=== PATIENT | female | born 1960 | race Caucasian/White ===

== ENCOUNTER → 2018-08-02 | Day surgery (SDC) | payer BC, MEDICARE ==
[~2018-08-02] MED LIST: AMBIEN10 MG PO; ARMOUR THYROID PO; BELBUCA; CLONAZEPAM1 MG PO; CYCLOBENZAPRINE10 MG PO; FENTANYL CITRATE/PF 100MCG/2 ML INJ ONE; GABAPENTIN300 MG PO; HYOSCYAMINE SULFATE 0.5 MG/ML INJ ONE; LEVAQUIN PO; LEVOTHYROXINE50 MCG PO; LIDOCAINE HCL50 ML TOP; LOSARTAN PO; LYRICA75 MG PO; MACROBID 100 M100 MG PO; METFORMIN HCL500 MG PO; MIDAZOLAM HCL 2 MG/2 ML VIAL ONE; MIRTAZAPINE15 MG PO; NAFTIN TOP; NASAL SPRAY30 M1; ONDANSETRON HCL INJ 2 MG/ML VIAL ONE; PRENATAL VITAM1 EACH PO; PROPOFOL IV EMULSION 10 MG/ML 50 ML VIAL ONE; PROPRANOLOL HCL10 MG PO; SAVELLA100 MG PO; ULTRAM50 MG PO; VENLAFAXINE HCL75 MG PO; VITAMIN B PO; VITAMIN D PO; [UNRECOGNIZED DRUG - OTHER]; [UNRECOGNIZED DRUG - OTHER] PO; [UNRECOGNIZED DRUG - OTHER] PO
--- OUTSIDE RECORDS SUMMARY | 2018-08-02 12:46 | XMS REPORT | Clinical Summary ---
Author Author [facility] Organization [facility] Address Unknown Phone Unavailable Care Team Providers Care Admissions Clinician Name Role Phone Jas Rosa MD PCP Allergies Comments Active Allergy Reactions Severity Noted Date Reports tardive dyskinesia, "spasms in arm" Quetiapine 12/08/2016 Medications End Date Status Medication Sig Dispensed Refills Start Date Active buprenorphine (BUTRANS) Place on the 0 10 mcg/hour patch weekly skin every 7 days. Active loren Take by mouth 0 [id number] daily. ac (PRIMROSE OIL) 1,000 mg capsule Active cyanocobalamin 100 MCG Take 1,000 0 tablet mcg by mouth daily. Active cyclobenzaprine Take 10 mg by 0 (FLEXERIL) 10 mg tablet mouth 2 (two) times a day as needed for muscle spasms. Active thyroid, pork, (ARMOUR Take 120 mg 0 THYROID) 120 mg tablet by mouth daily. Active venlafaxine XR Take 150 mg 0 (EFFEXOR-XR) 150 MG 24 hr by mouth 2 capsule (two) times a day. Active ketoprofen 5% and Apply 0 lidocaine 5% 5%-5% cream topically. With cylocbenzapri ne 3 Active eszopiclone (LUNESTA) 3 Take 3 mg by 0 mg tablet mouth nightly. Take immediately before bedtime Active pregabalin (LYRICA) 100 Take 225 mg 0 MG capsule by mouth 2 (two) times a day. Active mupirocin (BACTROBAN) 2 % Apply 0 ointment topically 3 (three) times a day. Active methocarbamol (ROBAXIN) Take 500 mg 0 500 MG tablet by mouth 4 (four) times a day. Active clobetasol 0.05 % lotion Apply 0 topically 2 (two) times a day. Active QUEtiapine XR (SEROquel Take 300 mg 0 XR) 300 MG 24 hr tablet by mouth nightly. Active celecoxib (CeleBREX) 200 Take 200 mg 0 MG capsule by mouth 2 (two) times a day. Active levocetirizine (XYZAL) 5 Take 5 mg by 0 MG tablet mouth every evening. Active naltrexone-bupropion Take by mouth 0 (CONTRAVE) 8-90 mg tablet 2 (two) times extended release a day. States does not take yet Active potassium chloride Take 10 mEq 0 (K-DUR,KLOR-CON) 10 MEQ by mouth 2 CR tablet (two) times a day. Active ondansetron (ZOFRAN) 8 MG Take 8 mg by 0 tablet mouth every 8 (eight) hours as needed for nausea or vomiting. Active oxyCODone (ROXICODONE) 30 Take 30 mg by 0 MG immediate release mouth every 4 tablet (four) hours as needed for moderate pain. Active multivitamin with Take 1 tablet 0 minerals tablet by mouth daily. Active Problems Not on file Encounters Care Team Description Date Type Specialty Timi Cooper MD Screening for malignant neoplasm of breast; Screening for osteoporosis 07/31/2018 Hospital Radiology Encounter Timi Cooper MD Screening for malignant neoplasm of breast; Screening for osteoporosis 07/31/2018 Hospital Radiology Encounter Timi Cooper MD Screening for malignant neoplasm of breast (Primary Dx); Screening for osteoporosis 07/27/2018 Transcribe Access Orders after 08/01/2017 Social History Date Tobacco Use Types Packs/Day Years Used Never Smoker Alcohol Use Drinks/Week oz/Week Comments No Sex Assigned at Date Recorded Not on file Industry Job Start Date Occupation Not on file Not on file Not on file Travel End Travel History Travel Start No recent travel history available. Last Filed Vital Signs Not on file Plan of Treatment Health Maintenance Due Date Last Done Comments CERVICAL CANCER SCREENING 1983 COLON CANCER SCREENING 02/12/2012 SHINGRIX VACCINE (1 of 2) 02/12/2012 INFLUENZA VACCINE 03/22/2018 BREAST CANCER SCREENING 07/31/2020 07/31/2018, 05/28/2016, 04/07/2015 HEPATITIS B VACCINES Aged Out No longer eligible based on patient's age to complete this topic IPV VACCINES Aged Out No longer eligible based on patient's age to complete this topic MENINGOCOCCAL VACCINE Aged Out No longer eligible based on patient's age to complete this topic Procedures Comments Procedure Name Priority Date/Time Associated Diagnosis MAMMO BREAST SCREEN Routine 07/31/2018 Screening for malignant TOMOSYNTHESIS BILATERAL 1:20 PM MASS SPECTROMETRY MANAGER neoplasm of breast Screening for osteoporosis BONE DENSITY Routine 07/31/2018 Screening for malignant 12:30 PM MASS SPECTROMETRY MANAGER neoplasm of breast Screening for osteoporosis after 08/01/2017 Results * Mammo Breast Screen Tomosynthesis Bilateral (07/31/2018 1:20 PM MASS SPECTROMETRY MANAGER) Narrative Performed At PROCEDURE: MAMMO BREAST SCREEN TOMOSYNTHESIS BILATERAL [facility] Computer aided detection was utilized for the interpretation of the digital bilateral screening mammography with tomosynthesis. COMPARISON: Prior studies dating 05/28/2016 and 04/07/2015 DENSITY: There are scattered areas of fibroglandular density. There is no evidence of new suspicious masses, architectural distortions or grouped calcifications in the breast. There are stable benign calcifications and an intramammary node in the right breast. IMPRESSION:No mammographic evidence of malignancy. RECOMMENDATION: Comparison with physical exam and annual screening mammography. BI-RADS 2: Benign. This facility is accredited by the [employer] for Mammography. A negative x-ray report should not delay biopsy if a dominant or clinically suspicious mass is present.Not all cancers are identified by x-ray. [id number] Performing Organization Address City/State/Zipcode Phone Number [facility] [address] [place] [address] * Bone Density (07/31/2018 12:30 PM MASS SPECTROMETRY MANAGER) Narrative Performed At EXAMINATION:BONE DENSITY [facility] CLINICAL HISTORY: 58 years Female Z12.31 Encounter for screening mammogram for malignant neoplasm of breast, Z13.820 Encounter for screening for osteoporosis, Z13.820 COMPARISON:05/28/2016 The results of this study expressed as bone mineral density (BMD) were as follows: AP spine (L1-L4) BMD: 1.168 g/cm2 T-Score: -0.1 Z-Score: -0.4 Percent change: +6.2 Dual Femur (Total Mean): BMD: 0.978 g/cm2 T-Score: -0.2 Z-Score:-0.3 Percent change: +5.4 Left femoral neck: BMD: 0.891 g/cm2 T-Score: -1.1 Z score: -0.7 Right femoral neck: BMD: 0.879 g/cm2 T-Score: -1.1 Z score: -0.8 Femur FRAX: Risk factors: Adult fracture 10 year probability of fracture: 1.Major osteoporotic: 9.7% 2.Hip: 0.5% 3.Based on femur right neck BMD Impression: 1.WHO classification consistent with osteopenia Notes: *The world health organization (WHO) has classified the patient's T-score as follows: At or above (-1) as normal (-1) to (-2.5) as low (osteopenia) At or below (-2.5) as abnormally low (osteoporosis, increased fracture risk) For premenopausal women, men under the age 50 years, and children the WHO classification does not apply. In these individuals please assess bone mineral density with Z scores for each skeletal site examined. Z scores above -2.0: Within expected range for age. Z scores lower than -2.0:Low bone density for age. The TBS is derived from the texture of the DEXA image and has been shown to be related to bone microarchitecture and fracture risk. This data provides information independent of BMD value; is used as a complement to the data obtained from the DEXA analysis and the clinical examination. The TBS can assist the healthcare professional in assessment of fracture risk and in monitoring the effect of treatments on patient over time. [id number] Procedure Note [facility], Radiology Results Incoming - 07/31/2018 3:27 PM MASS SPECTROMETRY MANAGER EXAMINATION: BONE DENSITY CLINICAL HISTORY: 58 years Female Z12.31 Encounter for screening mammogram for malignant neoplasm of breast, Z13.820 Encounter for screening for osteoporosis, Z13.820 COMPARISON: 05/28/2016 The results of this study expressed as bone mineral density (BMD) were as follows: AP spine (L1-L4) BMD: 1.168 g/cm2 T-Score: -0.1 Z-Score: -0.4 Percent change: +6.2 Dual Femur (Total Mean): BMD: 0.978 g/cm2 T-Score: -0.2 Z-Score: -0.3 Percent change: +5.4 Left femoral neck: BMD: 0.891 g/cm2 T-Score: -1.1 Z score: -0.7 Right femoral neck: BMD: 0.879 g/cm2 T-Score: -1.1 Z score: -0.8 Femur FRAX: Risk factors: Adult fracture 10 year probability of fracture: 1. Major osteoporotic: 9.7% 2. Hip: 0.5% 3. Based on femur right neck BMD Impression: 1. WHO classification consistent with osteopenia Notes: *The world health organization (WHO) has classified the patient's T-score as follows: At or above (-1) as normal (-1) to (-2.5) as low (osteopenia) At or below (-2.5) as abnormally low (osteoporosis, increased fracture risk) For premenopausal women, men under the age 50 years, and children the WHO classification does not apply. In these individuals please assess bone mineral density with Z scores for each skeletal site examined. Z scores above -2.0: Within expected range for age. Z scores lower than -2.0: Low bone density for age. The TBS is derived from the texture of the DEXA image and has been shown to be related to bone microarchitecture and fracture risk. This data provides information independent of BMD value; is used as a complement to the data obtained from the DEXA analysis and the clinical examination. The TBS can assist the healthcare professional in assessment of fracture risk and in monitoring the effect of treatments on patient over time. [facility]-[id number] [facility] Organization Address City/State/Zipcode Phone Number [facility] [address] [place] [address] after 08/01/2017 Insurance Payer Benefit Subscriber ID Type Phone Address Plan / Group BCBS CINTHYA xxxxxxxxxxxx O BLUE CROSS Advance Directives Patient has advance care planning documents on file. For more information, gladis dumont contact: [place] [phone] [place] [address]
[2018-08-02 16:42] VITALS: BP 124/62
--- NOTE | 2018-08-02 16:57 | Operative Report ---
DATE OF PROCEDURE: August 02, 2018 REFERRING PHYSICIAN: Dr. Bhavani Johnson. PROCEDURE PERFORMED: Colonoscopy and polypectomy note. INDICATIONS FOR COLONOSCOPY: A personal history of colon polyps, incomplete colonoscopy on previous exam 2017. MEDICATION: Patient was done under MAC. Please see anesthesiologist's note. PROCEDURE: With patient in left lateral decubitus position, flexible fiberoptic Olympus colonoscope was inserted into the rectum with ease and advanced all the way to the cecum. Mucosa overlying the cecum was well-visualized, except there was some debris in the cecal pouch which we could not wash off. The scope was then withdrawn slowly. One polyp was snared. One polyp was hot biopsied from the ascending colon. Both polypectomy sites were hemoclipped. The transverse and descending grossly appeared to be within normal limits. Some minimal diverticulosis was noted in the sigmoid colon. One polyp was hot biopsied from the sigmoid colon. The rectum appeared to be within normal limits. The scope was then retroflexed into the distal rectum and small internal hemorrhoids were noted, none of which was actively bleeding. The scope was then straightened out. It was subsequently withdrawn. Patient tolerated procedure well. IMPRESSIONS 1. Ascending colon polyps x2, one snared and one hot biopsied. Both polypectomy sites hemoclipped. 2. Sigmoid colon polyp, hot biopsied. 3. Diverticulosis. 4. Internal hemorrhoids, none actively bleeding. PLAN: Follow up histology. Initiate high-fiber, low-fat diet. Initiate a fiber supplement. Patient might benefit from a followup colonoscopy in 3 years. Job#: [id number] TA cc:BHAVANI JOHNSON, ,
== END | disposition home or self-care (01) ==
LOC: ENDO 12:44
PROVIDERS: ATTEND Internal Medicine Gastroenterology
DX: Z09 Encounter for follow-up examination after completed treatment for conditions other than malignant neoplasm (principal); D12.2 Benign neoplasm of ascending colon; K57.30 Diverticulosis of large intestine without perforation or abscess without bleeding; K64.8 Other hemorrhoids; K25.9 Gastric ulcer, unspecified as acute or chronic, without hemorrhage or perforation; K21.9 Gastro-esophageal reflux disease without esophagitis; K44.9 Diaphragmatic hernia without obstruction or gangrene; K58.9 Irritable bowel syndrome, unspecified; Z91.048 Other nonmedicinal substance allergy status; G47.33 Obstructive sleep apnea (adult) (pediatric); I10 Essential (primary) hypertension; E78.5 Hyperlipidemia, unspecified; R01.1 Cardiac murmur, unspecified; E11.9 Type 2 diabetes mellitus without complications; E03.9 Hypothyroidism, unspecified; N39.0 Urinary tract infection, site not specified; I83.90 Asymptomatic varicose veins of unspecified lower extremity; E66.01 Morbid (severe) obesity due to excess calories; F32.9 Major depressive disorder, single episode, unspecified; F41.9 Anxiety disorder, unspecified; Z88.8 Allergy status to other drugs, medicaments and biological substances; Z01.810 Encounter for preprocedural cardiovascular examination; Z79.84 Long term (current) use of oral hypoglycemic drugs; Z90.5 Acquired absence of kidney; Z80.0 Family history of malignant neoplasm of digestive organs
CPT/HCPCS: 36415; 45384; 45385; 82948; 93005; J1980; J2250; J2405; 45378

== ENCOUNTER → 2018-09-20 | Outpatient (CLI) | payer BC, MEDICARE ==
[~2018-09-20] MED LIST changes: -FENTANYL CITRATE/PF 100MCG/2 ML INJ ONE; -HYOSCYAMINE SULFATE 0.5 MG/ML INJ ONE; +IOPAMIDOL 370 MG/ML 200 ML INFUS..BTL INJ ONE; -MIDAZOLAM HCL 2 MG/2 ML VIAL ONE; -ONDANSETRON HCL INJ 2 MG/ML VIAL ONE; -PROPOFOL IV EMULSION 10 MG/ML 50 ML VIAL ONE; +SODIUM CHLORIDE 0.9% 50ML 50 ML ONE
[2018-09-20 16:17] LABS: BLOOD UREA NITROGEN 11 mg/dL (7-26); BUN/CREATININE RATIO 13 (6-25); CREATININE, SERUM 0.87 mg/dL (0.57-1.11); EST GLOMERULAR FILTRATION RATE > 60 ML/MIN (60-)
--- NOTE | 2018-09-20 17:08 | Diagnostic Imaging Report ---
EXAM: CT Abdomen and Pelvis WITH contrast INDICATION: Lump/mass, no pain COMPARISON: None. TECHNIQUE: Abdomen and Pelvis was scanned utilizing a multidetector helical scanner after administration of IV contrast. Coronal and sagittal reformations were obtained. IV CONTRAST: 100 mL Isovue-370 COMPLICATIONS: None RADIATION DOSE: Total DLP:825 mGy*cm Estimated effective dose: (DLP x 0.015 x size factor) mSv CTDIvol has been reviewed. It is below the limits set by the Radiation Protocol Committee (RPC). Appropriate CT dose reduction techniques were utilized. FINDINGS: Abdomen: Lung Bases: No acute findings. Solid Organs: Liver, adrenals, right kidney, spleen, and pancreas unremarkable. Left kidney not visualized. Upper GI Tract: Decompressed stomach limits evaluation. No small bowel obstructive changes. Vascularity: Minimal aortic vascular calcifications with no aneurysm. Lymph Nodes: No suspicious adenopathy. Other: Scattered hyperdense objects in the small and large bowel suggesting pleural fragments. No umbilical or periumbilical hernia. Inferolateral hernia is present on the left, just lateral to the rectus musculature with nonobstructed loops of small bowel. Pelvis: Bladder: Unremarkable. Other: Uterus absent. Colon: No acute colonic findings. Moderate proximal stool. Bones: No acute findings. IMPRESSION: 1. Inferolateral ventral wall hernia with nonobstructed loops of small bowel just lateral to the rectus musculature left lower quadrant. 2. Other findings as above. Signed by: Dr. Liam Goodson MD on 09/20/2018 5:05 PM
== END ==
LOC: CT 15:17
PROVIDERS: ATTEND Internal Medicine Gastroenterology
DX: R19.05 Periumbilic swelling, mass or lump (principal)
CPT/HCPCS: 36415; 74177; 82565; 84520; Q9967

== ENCOUNTER → 2018-10-27 | Day surgery (SDC) | payer BC, MEDICARE ==
[2018-10-24 13:08] LABS: BASOPHILS % 0.5 % (0.0-1.0); EOSINOPHILS # (AUTO) 0.1 (0.0-0.4); HEMATOCRIT 42.1 % (34.2-44.1); LYMPHOCYTES # (AUTO) 3.8 (1.0-3.2); LYMPHOCYTES % 42.6 % (18.0-39.1); MEAN CORPUSCULAR HEMOGLOBIN 30.5 pg (28-32); MEAN CORPUSCULAR HGB CONC 33.3 g/dL (31-35); MEAN CORPUSCULAR VOLUME 91.7 fL (81-99); MONOCYTES # (AUTO) 0.5 (0.2-0.8); MONOCYTES % 5.7 % (4.4-11.3); NEUTROPHILS # (AUTO) 4.4 (2.1-6.9); NEUTROPHILS % 50.1 % (38.7-80.0); PLATELET COUNT 232 x10e3/uL (140-360); RED BLOOD COUNT 4.59 x10e6/uL (3.6-5.1)
[2018-10-24 13:36] LABS: ALANINE AMINOTRANSFERASE 41 IU/L (0-55); ALBUMIN/GLOBULIN RATIO 1.1 (0.8-2.0); ALKALINE PHOSPHATASE 119 IU/L (40-150); ANION GAP 13.8 mmol/L (8-16); BLOOD UREA NITROGEN 26 mg/dL (7-26); BUN/CREATININE RATIO 33 (6-25); CALCIUM 10.2 mg/dL (8.4-10.2); CARBON DIOXIDE 26 mmol/L (22-29); CHLORIDE 98 mmol/L (98-107); CREATININE, SERUM 0.79 mg/dL (0.57-1.11); EST GLOMERULAR FILTRATION RATE > 60 ML/MIN (60-); GLUCOSE 84 mg/dL (74-118); POTASSIUM 4.8 mmol/L (3.5-5.1); SODIUM 133 mmol/L (136-145)
[~2018-10-27] MED LIST changes: +ACETAMINOPHEN 1000 MG/100 ML IV ONE; +BELBUCA PO; +BUPIVACAINE 0.25%/EPI 30ML SDV INJ ONE; +CEFAZOLIN SOD 1 GM VIAL ONE; +DEXAMETHASONE SOD PHOS INJ 4 MG/ML VIAL ONE; +FAMOTIDINE 20 MG/2 ML VIAL IV ONE; +FENTANYL CITRATE/PF 100MCG/2 ML INJ ONE; +HYDROCODONE/APAP 7.5MG-325MG 1 EA TAB ONE; +HYDROMORPHONE 2MG/ML 2 MG/ML ML ONE; -IOPAMIDOL 370 MG/ML 200 ML INFUS..BTL INJ ONE; +LEVOTHYROXINE75 MCG PO; +LIDOCAINE HCL 2% LOCAL INJ 5 ML SDV VIAL INJ ONE; +LYRICA300 MG PO; +METOCLOPRAMIDE HCL 10 MG/2ML VIAL ONE; +MIDAZOLAM HCL 2 MG/2 ML VIAL ONE; +ONDANSETRON HCL INJ 2MG/ML 2ML 2 MG/ML VIAL ONE; +POTASSIUM CHLO10 ME1 PO; +PROBIOTIC & AC1 EACH PO; +PROMETHAZINE HCL (IM) 25 MG/ML VIAL ONE; +PROPOFOL IV EMULSION 10 MG/ML 20 ML VIAL ONE; +ROCURONIUM BROMIDE 10 MG/ML 5ML VIAL ONE; +SCOPOLAMINE 1.5 MG PATCH ONE; +SEVOFLURANE INHAL SOLN 250 ML PEN BTL ONE; -SODIUM CHLORIDE 0.9% 50ML 50 ML ONE; +VALACYCLOVIR500 MG PO
[2018-10-27 19:15] VITALS: BP 125/74
--- NOTE | 2018-10-28 03:33 | Operative Report ---
DATE OF PROCEDURE: 10/27/2018 SURGEON: Fei Weems MD PREOPERATIVE DIAGNOSIS: Ventral hernia. POSTOPERATIVE DIAGNOSIS: Ventral hernia. OPERATION PERFORMED: Repair of ventral hernia with mesh. ANESTHESIA: General. COMPLICATIONS: None. ESTIMATED BLOOD LOSS: Minimal. DESCRIPTION OF PROCEDURE: With the patient lying in bed in the supine position under good general endotracheal anesthesia, the abdomen was prepped with Betadine solution and draped in the usual manner. A left lower quadrant incision was made over the palpable bulge that was present. Incision was taken down through the subcutaneous tissue down to the external oblique aponeurosis. External oblique was opened along the length of its fibers and immediately a large hernia sac was encountered, which was from the muscles and reduced all the way back to the intraabdominal cavity. The hernia sac was opened. Examination at this point revealed that the muscles had totally at the point where the patient had the previous surgery with the internal oblique muscles totally coming apart all the way to the lateral border of the rectus sheath. At this point, we went ahead then and reapproximated the internal oblique fascia and muscle using #1 PDS and the defect was closed this way. An extended Prolene Hernia System was then placed over the entire area and the underlay patch was then tacked all the way around using interrupted sutures of 0 Ethibond and 0 Vicryl. The external oblique aponeurosis was then closed around the connector with a running suture of #1 Vicryl anchoring the mesh as well and the overlay patch was then placed over the external oblique and fixed all the way around with interrupted sutures of 0 Ethibond and 0 Vicryl. This gave us a satisfactory repair. The whole area was thoroughly irrigated. All layers were infiltrated on the way out with solution of 0.25% Marcaine. The subcutaneous tissue was approximated with 2-0 chromic and the skin was closed with clips. A dressing was applied. The sponge, lap, and needle count was correct. The patient tolerated the procedure well and returned to the recovery room in stable condition. Fei Weems MD JLR/MODL /[id number]
== END | disposition home or self-care (01) ==
LOC: OR 12:21
PROVIDERS: ATTEND Surgery
DX: K43.9 Ventral hernia without obstruction or gangrene (principal); G47.33 Obstructive sleep apnea (adult) (pediatric); I10 Essential (primary) hypertension; E66.9 Obesity, unspecified; K76.0 Fatty (change of) liver, not elsewhere classified; K21.9 Gastro-esophageal reflux disease without esophagitis; K58.9 Irritable bowel syndrome, unspecified; F41.9 Anxiety disorder, unspecified; F32.9 Major depressive disorder, single episode, unspecified; Z01.810 Encounter for preprocedural cardiovascular examination; Z01.812 Encounter for preprocedural laboratory examination; Z88.8 Allergy status to other drugs, medicaments and biological substances; Z91.048 Other nonmedicinal substance allergy status; Z90.5 Acquired absence of kidney
CPT/HCPCS: 36415; 49560; 49568; 80053; 85025; 93005; C1781; J0131; J0690; J1100; J1170; J2001; J2250; J2405; J2550; J2704; J2765

== ENCOUNTER 2019-01-22 07:14 | Emergency (ER) | payer MEDICARE, BC ==
[~2019-01-22] VITALS: Ht 170.2 cm; Wt 113.4 kg
[~2019-01-22 07:14] MED LIST changes: -ACETAMINOPHEN 1000 MG/100 ML IV ONE; -BUPIVACAINE 0.25%/EPI 30ML SDV INJ ONE; -CEFAZOLIN SOD 1 GM VIAL ONE; -DEXAMETHASONE SOD PHOS INJ 4 MG/ML VIAL ONE; -FAMOTIDINE 20 MG/2 ML VIAL IV ONE; -FENTANYL CITRATE/PF 100MCG/2 ML INJ ONE; -HYDROCODONE/APAP 7.5MG-325MG 1 EA TAB ONE; -HYDROMORPHONE 2MG/ML 2 MG/ML ML ONE; -LIDOCAINE HCL 2% LOCAL INJ 5 ML SDV VIAL INJ ONE; -METOCLOPRAMIDE HCL 10 MG/2ML VIAL ONE; -MIDAZOLAM HCL 2 MG/2 ML VIAL ONE; -ONDANSETRON HCL INJ 2MG/ML 2ML 2 MG/ML VIAL ONE; -PROMETHAZINE HCL (IM) 25 MG/ML VIAL ONE; -PROPOFOL IV EMULSION 10 MG/ML 20 ML VIAL ONE; -ROCURONIUM BROMIDE 10 MG/ML 5ML VIAL ONE; -SCOPOLAMINE 1.5 MG PATCH ONE; -SEVOFLURANE INHAL SOLN 250 ML PEN BTL ONE
[2019-01-22] MEDS ORDERED: DIAZEPAM 5 MG TAB PO ONE (07:45)
[2019-01-22] MEDS ORDERED: KETOROLAC TROMETHAMINE 60 MG/2 ML VIAL IM ONE (07:45)
[2019-01-22] MEDS ORDERED: HYDROCODONE/APAP 5MG-325MG TAB PO ONE (07:45)
--- NOTE | 2019-01-22 08:56 | Diagnostic Imaging Report ---
Exam: Right shoulder radiographs-2 views History: Right shoulder pain. Comparison: None. Findings: No evidence of acute fracture or malalignment. Internal and external views are unremarkable. There are mild right glenohumeral and moderate right acromioclavicular joint degenerative changes with joint space narrowing and subchondral sclerosis. Impression: No acute radiographic abnormality. 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 Signed by: Dr. Rosy Cosby MD on 01/22/2019 8:53 AM
[2019-01-22 09:20] LABS: BILIRUBIN,URINE NEGATIVE (NEGATIVE); CLARITY,URINE CLEAR (CLEAR); COLOR,URINE YELLOW (YELLOW); KETONES,URINE NEGATIVE (NEGATIVE); LEUKOCYTE ESTERASE ,URINE NEGATIVE (NEGATIVE); NITRITE,URINE NEGATIVE (NEGATIVE); PROTEIN,URINE DIPSTICK NEGATIVE (NEGATIVE); URINE UROBILINOGEN 0.2 mg/dL (0.2 - 1)
[2019-01-22 09:41] LABS: EPITHELIAL CELLS,URINE FEW /LPF
== END 2019-01-22 10:02 | disposition home or self-care (01) ==
LOC: ER 07:14
DX: M25.511 Pain in right shoulder (principal); S46.811A Strain of other muscles, fascia and tendons at shoulder and upper arm level, right arm, initial encounter; W20.8XXA Other cause of strike by thrown, projected or falling object, initial encounter; I10 Essential (primary) hypertension; M54.2 Cervicalgia; G89.29 Other chronic pain
CPT/HCPCS: 81001; 99283

== ENCOUNTER 2022-02-02 12:37 | Emergency (ER) | payer BC, MEDICARE ==
[~2022-02-02] VITALS: Ht 167.6 cm; Wt 121.6 kg
[2022-02-02] MEDS ORDERED: ACETAMINOPHEN 325 MG TAB PO ONE (13:00)
[2022-02-02] MEDS ORDERED: FUROSEMIDE20 MG (13:20)
[2022-02-02] MEDS ORDERED: HETLIOZ20 MG (13:20)
[2022-02-02] MEDS ORDERED: PHENTERMINE H37.5 M1 (13:20)
[2022-02-02] MEDS ORDERED: ACETAMINOPHEN 325 MG TAB ONE (13:24)
== END 2022-02-02 15:30 | disposition home or self-care (01) ==
LOC: FSED 12:51
DX: S50.311A Abrasion of right elbow, initial encounter (principal); S60.221A Contusion of right hand, initial encounter; S30.0XXA Contusion of lower back and pelvis, initial encounter; I10 Essential (primary) hypertension; E11.9 Type 2 diabetes mellitus without complications; M79.7 Fibromyalgia; F32.A Depression, unspecified; F41.9 Anxiety disorder, unspecified; W18.39XA Other fall on same level, initial encounter; Y92.002 Bathroom of unspecified non-institutional (private) residence as the place of occurrence of the external cause; Z88.6 Allergy status to analgesic agent; Z88.8 Allergy status to other drugs, medicaments and biological substances; Z79.899 Other long term (current) drug therapy
CPT/HCPCS: 71101; 72040; 72100; 99283

== ENCOUNTER → 2022-06-30 | Day surgery (SDC) | payer BC, MEDICARE ==
[~2022-06-30] MED LIST changes: +AMITRIPTYLINE H10 MG PO; +BENZTROPINE MESY1 MG PO; +C-500500 MG PO; +CELEBREX200 MG PO; +CLOTRIMAZOLE-BE15 GM TOP; +CRESTOR10 MG PO; +EVENING PRIMR1000 MG PO; +EVOXAC30 MG PO; +FANAPT6 MG PO; +FENTANYL CITRATE/PF 100MCG/2 ML INJ ONE; +FLONASE ALLERG9.9 ML INH; +FUROSEMIDE20 MG; +HETLIOZ20 MG; +HETLIOZ20 MG PO; +HYOSCYAMINE SULFATE 0.5 MG/ML INJ ONE; +IBUPROFEN IB200 MG PO; +LEVOCETIRIZINE D5 MG PO; +LIDOCAINE HCL 2% LOCAL INJ 5 ML SDV VIAL INJ ONE; +METFORMIN HCL500 M2 PO; +MIDAZOLAM HCL 2 MG/2 ML VIAL ONE; +NAPROXEN250 MG PO; +NEURONTIN300 MG PO; +PHENTERMINE H37.5 M1; +PHYSICIANS1000 MCG/1 IM; +PLAQUENIL200 MG PO; +PREDNISONE10 MG PO; +PROPOFOL IV EMULSION 10 MG/ML 20 ML VIAL ONE; +PROPRANOLOL HCL20 MG PO; +RISPERIDONE1 MG PO; +SALAGEN5 MG PO; +SUMATRIPTAN SUC25 MG PO; +VITAMIN D IM; +XYZAL5 MG PO; +[UNRECOGNIZED DRUG - OTHER] PO
[2022-06-30 14:30] VITALS: BP 122/78
== END | disposition home or self-care (01) ==
LOC: OR 10:01
PROVIDERS: ATTEND Internal Medicine Gastroenterology
DX: Z12.11 Encounter for screening for malignant neoplasm of colon (principal); Z86.010 Personal history of colon polyps; K59.00 Constipation, unspecified; K64.8 Other hemorrhoids; E11.9 Type 2 diabetes mellitus without complications; I10 Essential (primary) hypertension; E03.9 Hypothyroidism, unspecified; G43.909 Migraine, unspecified, not intractable, without status migrainosus; F32.A Depression, unspecified; F41.9 Anxiety disorder, unspecified; Z88.6 Allergy status to analgesic agent; Z88.8 Allergy status to other drugs, medicaments and biological substances; Z91.048 Other nonmedicinal substance allergy status; Z01.810 Encounter for preprocedural cardiovascular examination; Z79.84 Long term (current) use of oral hypoglycemic drugs; Z79.899 Other long term (current) drug therapy; Z90.5 Acquired absence of kidney; Z80.0 Family history of malignant neoplasm of digestive organs
CPT/HCPCS: 36415; 82948; 93005; G0105; J1980; J2001; J2250; J2704; J3010; 45378

== ENCOUNTER 2022-10-06 11:54 | Inpatient (IN) | payer MEDICARE ==
[~2022-10-06] VITALS: Ht 170.2 cm; Wt 121.6 kg
[~2022-10-06 11:54] MED LIST changes: -FENTANYL CITRATE/PF 100MCG/2 ML INJ ONE; -HYOSCYAMINE SULFATE 0.5 MG/ML INJ ONE; -LIDOCAINE HCL 2% LOCAL INJ 5 ML SDV VIAL INJ ONE; -MIDAZOLAM HCL 2 MG/2 ML VIAL ONE; -PROPOFOL IV EMULSION 10 MG/ML 20 ML VIAL ONE; -VITAMIN D IM; +[UNRECOGNIZED DRUG - OTHER] PO
[2022-10-06] MEDS ORDERED: SODIUM CHLORIDE FLUSH 10 ML SYR IV PRN (12:30)
[2022-10-06 12:42] LABS: BASOPHILS % 0.6 % (0.0-1.0); EOSINOPHILS # (AUTO) 0.1 (0.0-0.4); EOSINOPHILS % 0.8 % (0.0-6.0); HEMATOCRIT 37.2 % (34.2-44.1); HEMOGLOBIN 12.4 g/dL (12.0-16.0); LYMPHOCYTES # (AUTO) 1.6 (1.0-3.2); LYMPHOCYTES % 24.4 % (18.0-39.1); MEAN CORPUSCULAR HEMOGLOBIN 31.2 pg (28-32); MEAN CORPUSCULAR HGB CONC 33.3 g/dL (31-35); MEAN CORPUSCULAR VOLUME 93.7 fL (81-99); MONOCYTES # (AUTO) 0.2 (0.2-0.8); MONOCYTES % 2.9 % (4.4-11.3); NEUTROPHILS # (AUTO) 4.6 (2.1-6.9); NEUTROPHILS % 70.8 % (38.7-80.0); PLATELET COUNT 228 x10e3/uL (140-360); RED BLOOD COUNT 3.97 x10e6/uL (3.6-5.1); RED CELL DISTRIBUTION WIDTH 12.7 % (11.7-14.4)
[2022-10-06 12:46] LABS: CLARITY,URINE CLEAR (CLEAR); COLOR,URINE YELLOW (YELLOW); KETONES,URINE NEGATIVE (NEGATIVE); LEUKOCYTE ESTERASE ,URINE NEGATIVE (NEGATIVE); NITRITE,URINE NEGATIVE (NEGATIVE); PROTEIN,URINE DIPSTICK NEGATIVE (NEGATIVE)
[2022-10-06 12:47] LABS: INR 1.08; PROTHROMBIN TIME 14.2 seconds (11.9-14.5)
[2022-10-06 12:48] LABS: PARTIAL THROMBOPLASTIN TIME 28.6 seconds (23.8-35.5)
[2022-10-06 12:51] LABS: AMPHETAMINES SCREEN,URINE NEGATIVE (NEGATIVE); BACTERIA,URINE FEW /HPF; BENZODIAZEPINES SCREEN,URINE NEGATIVE (NEGATIVE); EPITHELIAL CELLS,URINE MODERATE /LPF; PHENCYCLIDINE SCREEN,URINE NEGATIVE (NEGATIVE); RBC,URINE 0-5 /HPF (0-5); URINE UROBILINOGEN 0.2 mg/dL (0.2 - 1); WBC,URINE (MAN) 0-5 /HPF (0-5)
[2022-10-06 12:57] LABS: ALBUMIN 3.5 g/dL (3.5-5.0); ANION GAP 12.4 mmol/L (8-16); CALCIUM 8.8 mg/dL (8.4-10.2); CREATININE, SERUM 0.98 mg/dL (0.57-1.11); POTASSIUM 3.4 mmol/L (3.5-5.1)
[2022-10-06] MEDS ORDERED: ACETAMINOPHEN 325 MG TAB PO ONE (14:30)
[2022-10-06] MEDS ORDERED: ONDANSETRON HCL INJ 2MG/ML 2ML 2 MG/ML VIAL IV PRN (15:45)
[2022-10-06] MEDS ORDERED: DEXTROSE 50% SYRINGE 50 ML IV PRN (15:45)
[2022-10-06] MEDS: INSULIN REGULAR, HUMAN 100 UNIT/1 ML SQ SCH ×2 (16:30→21:00)
[2022-10-06 20:00] VITALS: BP 120/77
[2022-10-06] MEDS ORDERED: POLYETHYLENE GLYCOL 3350 17 GM PACK PO PRN (20:00)
[2022-10-06] MEDS ORDERED: ACETAMINOPHEN 325 MG TAB PO PRN (20:00)
[2022-10-06] MEDS ORDERED: HYDRALAZINE HCL 20 MG/ML VIAL IV PRN (20:00)
[2022-10-06 20:40] VITALS: BP 120/77
[2022-10-06] MEDS ORDERED: BISACODYL 10 MG SUPP PR PRN (21:30)
[2022-10-06] MEDS ORDERED: EVENING PRIMR1000 MG (21:36)
[2022-10-06] MEDS ORDERED: MINIPRESS1 MG PO (21:36)
[2022-10-06] MEDS ORDERED: EXCEDRIN EXTRA1 EAC1 (21:36)
[2022-10-06] MEDS ORDERED: LITHOBID300 MG PO (21:36)
[2022-10-06] MEDS ORDERED: CHLORPROMAZINE200 MG (21:36)
[2022-10-06] MEDS: DOCUSATE SODIUM 100 MG CAP PO SCH (21:56)
[2022-10-06] MEDS: POLYETHYLENE GLYCOL 3350 17 GM PACK PO SCH (21:56)
[2022-10-06 22:22] LABS: CHOL/HDL RATIO 3.3 (3.0-3.6)
[2022-10-07] VITALS (7 sets, daily range): BP systolic 130–148; BP diastolic 68–82
[2022-10-07 05:28] LABS: BASOPHILS % 0.6 % (0.0-1.0); EOSINOPHILS # (AUTO) 0.1 (0.0-0.4); EOSINOPHILS % 1.8 % (0.0-6.0); HEMATOCRIT 36.7 % (34.2-44.1); HEMOGLOBIN 12.1 g/dL (12.0-16.0); MEAN CORPUSCULAR HEMOGLOBIN 30.9 pg (28-32); MEAN CORPUSCULAR VOLUME 93.6 fL (81-99); MONOCYTES # (AUTO) 0.4 (0.2-0.8); MONOCYTES % 5.6 % (4.4-11.3); NEUTROPHILS % 45.7 % (38.7-80.0); PLATELET COUNT 193 x10e3/uL (140-360); RED BLOOD COUNT 3.92 x10e6/uL (3.6-5.1); RED CELL DISTRIBUTION WIDTH 12.8 % (11.7-14.4)
[2022-10-07 06:20] LABS: ALBUMIN 3.4 g/dL (3.5-5.0); ANION GAP 13.6 mmol/L (8-16); CALCIUM 8.8 mg/dL (8.4-10.2); CREATININE, SERUM 0.91 mg/dL (0.57-1.11); POTASSIUM 3.6 mmol/L (3.5-5.1)
[2022-10-07 07:16] LABS: THYROID STIMULATING HORMONE 4.824 uIU/mL (0.350-4.940)
[2022-10-07] MEDS ORDERED: LEVOTHYROXINE SODIUM 50 MCG TAB PO SCH (07:30)
[2022-10-07] MEDS: INSULIN REGULAR, HUMAN 100 UNIT/1 ML SQ SCH ×4 (07:30→21:00)
[2022-10-07] MEDS: VENLAFAXINE HCL 75 MG TAB PO SCH ×2 (09:00→17:00)
[2022-10-07] MEDS ORDERED: DOCUSATE SODIUM 100 MG CAP PO SCH (09:00)
[2022-10-07] MEDS: DOCUSATE SODIUM 100 MG CAP PO SCH ×3 (09:31→21:00)
[2022-10-07] MEDS: FAMOTIDINE 20 MG TAB PO SCH ×2 (09:31→17:44)
[2022-10-07] MEDS: METFORMIN HCL 500 MG TAB CR PO SCH ×2 (09:31→16:40)
[2022-10-07] MEDS: POLYETHYLENE GLYCOL 3350 17 GM PACK PO SCH ×2 (09:32→17:43)
[2022-10-07] MEDS ORDERED: ACETAMIN/BUTALBITAL/CAFFEINE TAB PO PRN (10:00)
[2022-10-07] MEDS ORDERED: ACETAMIN/BUTALBITAL/CAFFEINE TAB PO ONE (10:30)
[2022-10-07] MEDS: CRESTOR 10MG PO SCH (20:59)
[2022-10-07] MEDS ORDERED: SIMVASTATIN 40 MG TAB PO SCH (21:00)
[2022-10-07] MEDS: AMITRIPTYLINE HCL 25 MG TAB PO SCH (21:11)
[2022-10-07] MEDS ORDERED: ACETAMINOPHEN/CODEINE 300MG - 30MG TAB PO PRN (21:30)
[2022-10-07] MEDS: MELATONIN 3 MG TAB PO PRN (22:05)
[2022-10-07] MEDS: HYDROCODONE/APAP 5MG-325MG TAB PO PRN (22:06)
[2022-10-08] VITALS (9 sets, daily range): BP systolic 115–155; BP diastolic 73–100
[2022-10-08] MEDS: LEVOTHYROXINE SODIUM 50 MCG TAB PO SCH (05:15)
[2022-10-08] MEDS: HYDROCODONE/APAP 5MG-325MG TAB PO PRN ×2 (05:32→20:30)
[2022-10-08] MEDS: INSULIN REGULAR, HUMAN 100 UNIT/1 ML SQ SCH ×4 (07:30→20:28)
[2022-10-08] MEDS: VENLAFAXINE HCL 75 MG TAB PO SCH ×2 (08:21→16:52)
[2022-10-08] MEDS: DOCUSATE SODIUM 100 MG CAP PO SCH ×3 (08:21→20:30)
[2022-10-08] MEDS: FAMOTIDINE 20 MG TAB PO SCH ×2 (08:21→16:52)
[2022-10-08] MEDS: METFORMIN HCL 500 MG TAB CR PO SCH ×2 (08:21→16:51)
[2022-10-08] MEDS: POLYETHYLENE GLYCOL 3350 17 GM PACK PO SCH ×3 (08:22→18:37)
[2022-10-08] MEDS ORDERED: ONDANSETRON HCL 4 MG ORAL DISINTEGRATING TAB PO PRN (11:30)
[2022-10-08] MEDS: AMITRIPTYLINE HCL 25 MG TAB PO SCH (20:29)
[2022-10-08] MEDS: MELATONIN 3 MG TAB PO PRN (20:29)
[2022-10-08] MEDS: CRESTOR 10MG PO SCH (20:30)
[2022-10-09] VITALS (11 sets, daily range): BP systolic 103–134; BP diastolic 50–94
[2022-10-09] MEDS: LEVOTHYROXINE SODIUM 50 MCG TAB PO SCH (04:51)
[2022-10-09] MEDS: INSULIN REGULAR, HUMAN 100 UNIT/1 ML SQ SCH ×4 (07:30→20:58)
[2022-10-09] MEDS: POLYETHYLENE GLYCOL 3350 17 GM PACK PO SCH ×3 (09:00→20:58)
[2022-10-09] MEDS: FAMOTIDINE 20 MG TAB PO SCH ×2 (09:55→16:37)
[2022-10-09] MEDS: METFORMIN HCL 500 MG TAB CR PO SCH ×2 (09:56→16:38)
[2022-10-09] MEDS: DOCUSATE SODIUM 100 MG CAP PO SCH ×3 (09:56→20:58)
[2022-10-09] MEDS: VENLAFAXINE HCL 75 MG TAB PO SCH ×2 (09:56→17:31)
[2022-10-09] MEDS: HYDROCODONE/APAP 5MG-325MG TAB PO PRN (20:58)
[2022-10-09] MEDS: MELATONIN 3 MG TAB PO PRN (20:58)
[2022-10-09] MEDS: CRESTOR 10MG PO SCH (20:58)
[2022-10-10] VITALS (11 sets, daily range): BP systolic 97–127; BP diastolic 56–78
[2022-10-10] MEDS: FAMOTIDINE 20 MG TAB PO SCH ×4 (06:30→16:31)
[2022-10-10] MEDS: LEVOTHYROXINE SODIUM 50 MCG TAB PO SCH (06:38)
[2022-10-10] MEDS: INSULIN REGULAR, HUMAN 100 UNIT/1 ML SQ SCH ×4 (07:30→20:46)
[2022-10-10] MEDS: POLYETHYLENE GLYCOL 3350 17 GM PACK PO SCH ×2 (09:01→16:34)
[2022-10-10] MEDS: DOCUSATE SODIUM 100 MG CAP PO SCH ×3 (09:01→20:45)
[2022-10-10] MEDS: VENLAFAXINE HCL 75 MG TAB PO SCH ×2 (09:01→16:32)
[2022-10-10] MEDS: METFORMIN HCL 500 MG TAB CR PO SCH ×2 (11:02→16:32)
[2022-10-10] MEDS: CRESTOR 10MG PO SCH (20:40)
[2022-10-10] MEDS: MELATONIN 3 MG TAB PO PRN (20:45)
[2022-10-11] VITALS: BP 130/76
[2022-10-11 04:00] VITALS: BP 108/62
[2022-10-11 05:24] LABS: BASOPHILS % 0.5 % (0.0-1.0); EOSINOPHILS # (AUTO) 0.1 (0.0-0.4); EOSINOPHILS % 1.2 % (0.0-6.0); HEMATOCRIT 41.2 % (34.2-44.1); HEMOGLOBIN 13.4 g/dL (12.0-16.0); MEAN CORPUSCULAR HEMOGLOBIN 30.8 pg (28-32); MEAN CORPUSCULAR HGB CONC 32.5 g/dL (31-35); MEAN CORPUSCULAR VOLUME 94.7 fL (81-99); MONOCYTES # (AUTO) 0.6 (0.2-0.8); MONOCYTES % 7.2 % (4.4-11.3); NEUTROPHILS # (AUTO) 4.4 (2.1-6.9); NEUTROPHILS % 53.7 % (38.7-80.0); PLATELET COUNT 196 x10e3/uL (140-360); RED BLOOD COUNT 4.35 x10e6/uL (3.6-5.1); RED CELL DISTRIBUTION WIDTH 12.9 % (11.7-14.4)
[2022-10-11 05:46] LABS: ANION GAP 14.3 mmol/L (8-16); CALCIUM 9.5 mg/dL (8.4-10.2); CREATININE, SERUM 0.83 mg/dL (0.57-1.11); POTASSIUM 4.3 mmol/L (3.5-5.1)
[2022-10-11] MEDS: LEVOTHYROXINE SODIUM 50 MCG TAB PO SCH (06:10)
[2022-10-11] MEDS: FAMOTIDINE 20 MG TAB PO SCH ×2 (06:10→16:21)
[2022-10-11] MEDS: INSULIN REGULAR, HUMAN 100 UNIT/1 ML SQ SCH ×3 (07:30→16:25)
[2022-10-11 07:49] VITALS: BP 115/69
[2022-10-11 08:38] VITALS: BP 115/69
[2022-10-11] MEDS: DOCUSATE SODIUM 100 MG CAP PO SCH ×2 (09:00→14:39)
[2022-10-11] MEDS: METFORMIN HCL 500 MG TAB CR PO SCH ×2 (10:39→16:21)
[2022-10-11] MEDS: VENLAFAXINE HCL 75 MG TAB PO SCH ×2 (10:39→16:21)
[2022-10-11 11:40] VITALS: BP 101/72
[2022-10-11 16:04] VITALS: BP 119/80
[2022-10-11] MEDS: POLYETHYLENE GLYCOL 3350 17 GM PACK PO SCH (16:22)
[2022-10-11] MEDS ORDERED: BENZTROPINE MESYLATE 1 MG TAB PO SCH (17:00)
[2022-10-11] MEDS ORDERED: MELATONIN3 MG PO (17:03)
[2022-10-11] MEDS ORDERED: MIRALAX17 GM PO (17:03)
[2022-10-11] MEDS ORDERED: Metformin Hcl PO (17:03)
[2022-10-11] MEDS ORDERED: Docusate Sodium PO (17:03)
[2022-10-11] MEDS ORDERED: BENZTROPINE MESY1 MG PO (17:03)
[2022-10-11] MEDS ORDERED: AUSTEDO6 MG PO (17:03)
[2022-10-11] MEDS ORDERED: ACETAMINOPHEN325 M1 PO (17:03)
[2022-10-11] MEDS ORDERED: ONDANSETRON ODT4 MG PO (17:03)
== END 2022-10-11 18:16 | disposition home or self-care (01) | DRG 92 ==
LOC: ER 12:00 → ERHOLD 15:50 → MED/SURG 17:10 → OBSVTOIN 10-08 10:56
PROVIDERS: ADMIT Internal Medicine; ATTEND Internal Medicine
DX: G24.01 Drug induced subacute dyskinesia (principal); E87.1 Hypo-osmolality and hyponatremia; E87.20 Acidosis, unspecified; E11.65 Type 2 diabetes mellitus with hyperglycemia; F41.9 Anxiety disorder, unspecified; F48.8 Other specified nonpsychotic mental disorders; G89.29 Other chronic pain; E87.6 Hypokalemia; R29.6 Repeated falls; M79.7 Fibromyalgia; G43.909 Migraine, unspecified, not intractable, without status migrainosus; Z88.5 Allergy status to narcotic agent; Z90.5 Acquired absence of kidney; Z90.710 Acquired absence of both cervix and uterus; E11.69 Type 2 diabetes mellitus with other specified complication; E78.2 Mixed hyperlipidemia; Z79.899 Other long term (current) drug therapy; R25.1 Tremor, unspecified; T50.995A Adverse effect of other drugs, medicaments and biological substances, initial encounter; F31.9 Bipolar disorder, unspecified; Z20.822 Contact with and (suspected) exposure to COVID-19
CPT/HCPCS: 36415; 70450; 70551; 71045; 80048; 80053; 80061; 80307; 81001; 82140; 82607; 82948; 83036; 83605; 83735; 84100; 84425; 84443; 84484; 85025; 85610; 85730; 86592; 87040; 87086; 92523; 93005; 94760; 95819; 99285; G0378; J0456; J0696; J1817; J7050

== ENCOUNTER 2024-11-18 11:25 | Emergency (ER) | payer MEDICARE ==
[~2024-11-18] VITALS: Ht 170.2 cm; Wt 95.7 kg
[~2024-11-18 11:25] MED LIST changes: +ACETAMINOPHEN325 M1 PO; +AUSTEDO6 MG PO; +CHLORPROMAZINE200 MG; +Docusate Sodium PO; +EVENING PRIMR1000 MG; +EXCEDRIN EXTRA1 EAC1; +LITHOBID300 MG PO; +MELATONIN3 MG PO; +MINIPRESS1 MG PO; +MIRALAX17 GM PO; +Metformin Hcl PO; +ONDANSETRON ODT4 MG PO
[2024-11-18 11:31] VITALS: TEMP 98.5
[2024-11-18 12:13] LABS: BASOPHILS % 0.3 % (0.0-1.0); EOSINOPHILS % 0.1 % (0.0-6.0); HEMATOCRIT 33.7 % (34.2-44.1); HEMOGLOBIN 11.6 g/dL (12.0-16.0); LYMPHOCYTES # (AUTO) 1.6 (1.0-3.2); LYMPHOCYTES % 22.7 % (18.0-39.1); MEAN CORPUSCULAR HGB CONC 34.4 g/dL (31-35); MEAN CORPUSCULAR VOLUME 93.1 fL (81-99); MONOCYTES # (AUTO) 0.4 (0.2-0.8); MONOCYTES % 6.3 % (4.4-11.3); NEUTROPHILS # (AUTO) 4.9 (2.1-6.9); NEUTROPHILS % 70.3 % (38.7-80.0); PLATELET COUNT 225 x10e3/uL (140-360); RED BLOOD COUNT 3.62 x10e6/uL (3.6-5.1); WHITE BLOOD COUNT 6.96 x10e3/uL (4.8-10.8)
[2024-11-18 12:27] LABS: ALBUMIN 4.3 g/dL (3.5-5.0); ALBUMIN/GLOBULIN RATIO 1.3 (0.8-2.0); ANION GAP 16.4 mmol/L (8-16); BILIRUBIN,TOTAL 0.6 mg/dL (0.2-1.2); CALCIUM 9.9 mg/dL (8.4-10.2); CREATININE, SERUM 0.9 mg/dL (0.57-1.11); TOTAL PROTEIN 7.5 g/dL (6.5-8.1)
[2024-11-18 12:28] LABS: POTASSIUM 3.4 mmol/L (3.5-5.1)
[2024-11-18 13:29] LABS: BILIRUBIN,URINE NEGATIVE (NEGATIVE); CLARITY,URINE CLEAR (CLEAR); COLOR,URINE YELLOW (YELLOW); GLUCOSE, URINE NEGATIVE (NEGATIVE); KETONES,URINE NEGATIVE (NEGATIVE); LEUKOCYTE ESTERASE ,URINE NEGATIVE (NEGATIVE); NITRITE,URINE NEGATIVE (NEGATIVE); PH,URINE 6 (5 - 7); PROTEIN,URINE DIPSTICK NEGATIVE (NEGATIVE); URINE UROBILINOGEN 0.2 mg/dL (0.2 - 1)
[2024-11-18 14:00] VITALS: PULSE 81; RESP 18
[2024-11-18] MEDS: SODIUM CHLORIDE 0.9% 1000ML 1,000 ML IV SCH (14:08)
[2024-11-18] MEDS ORDERED: MECLIZINE HCL12.5 MG PO (14:22)
[2024-11-18 15:00] VITALS: BP 114/60; PULSE 75; RESP 18; O2SAT 100
== END 2024-11-18 15:03 | disposition home or self-care (01) ==
LOC: ER 11:52
DX: R42 Dizziness and giddiness (principal); I10 Essential (primary) hypertension; E11.9 Type 2 diabetes mellitus without complications; E78.5 Hyperlipidemia, unspecified; N80.9 Endometriosis, unspecified; K21.9 Gastro-esophageal reflux disease without esophagitis; F41.9 Anxiety disorder, unspecified; F32.A Depression, unspecified; M79.7 Fibromyalgia
CPT/HCPCS: 36415; 70450; 71045; 80053; 81001; 84484; 85025; 93005; 99284 ×2; J7030

== ENCOUNTER 2024-11-19 17:23 | Inpatient (IN) | payer MEDICARE, OTHER ==
[~2024-11-19] VITALS: Ht 170.2 cm; Wt 64.9 kg
[~2024-11-19 17:23] MED LIST changes: +MECLIZINE HCL12.5 MG PO
[2024-11-19 18:01] VITALS: TEMP 98.8
[2024-11-19] MEDS: SODIUM CHLORIDE 0.9% 1000ML 1,000 ML IV ONE (18:35)
[2024-11-19 18:41] LABS: BASOPHILS % 0.2 % (0.0-1.0); EOSINOPHILS % 0.2 % (0.0-6.0); HEMATOCRIT 33.5 % (34.2-44.1); HEMOGLOBIN 11.7 g/dL (12.0-16.0); LYMPHOCYTES # (AUTO) 2.2 (1.0-3.2); LYMPHOCYTES % 24.8 % (18.0-39.1); MEAN CORPUSCULAR HEMOGLOBIN 31.8 pg (28-32); MEAN CORPUSCULAR HGB CONC 34.9 g/dL (31-35); MONOCYTES # (AUTO) 0.6 (0.2-0.8); MONOCYTES % 7.2 % (4.4-11.3); NEUTROPHILS # (AUTO) 5.9 (2.1-6.9); NEUTROPHILS % 67.3 % (38.7-80.0); PLATELET COUNT 255 x10e3/uL (140-360); RED BLOOD COUNT 3.68 x10e6/uL (3.6-5.1); RED CELL DISTRIBUTION WIDTH 14.9 % (11.7-14.4); WHITE BLOOD COUNT 8.76 x10e3/uL (4.8-10.8)
[2024-11-19 21:04] LABS: ALBUMIN 3.8 g/dL (3.5-5.0); ALBUMIN/GLOBULIN RATIO 1.5 (0.8-2.0); BILIRUBIN,TOTAL 0.4 mg/dL (0.2-1.2); CALCIUM 9.1 mg/dL (8.4-10.2); CREATININE, SERUM 0.79 mg/dL (0.57-1.11); TOTAL PROTEIN 6.4 g/dL (6.5-8.1)
[2024-11-19 21:10] LABS: TROPONIN I 0.007 ng/mL (0-0.300)
[2024-11-19 21:15] LABS: BILIRUBIN,URINE NEGATIVE (NEGATIVE); CLARITY,URINE CLEAR (CLEAR); COLOR,URINE YELLOW (YELLOW); GLUCOSE, URINE NEGATIVE (NEGATIVE); KETONES,URINE NEGATIVE (NEGATIVE); LEUKOCYTE ESTERASE ,URINE NEGATIVE (NEGATIVE); NITRITE,URINE NEGATIVE (NEGATIVE); PH,URINE 6.5 (5 - 7); PROTEIN,URINE DIPSTICK NEGATIVE (NEGATIVE); URINE UROBILINOGEN 0.2 mg/dL (0.2 - 1)
[2024-11-19 21:16] LABS: BACTERIA,URINE RARE /HPF; EPITHELIAL CELLS,URINE RARE /LPF; RBC,URINE 0-5 /HPF (0-5); WBC,URINE (MAN) 0-5 /HPF (0-5)
[2024-11-19] MEDS ORDERED: ONDANSETRON HCL INJ 2MG/ML 2ML 2 MG/ML VIAL IV PRN (22:30)
[2024-11-19 22:50] VITALS: PULSE 76; RESP 18; O2SAT 99
[2024-11-19 23:30] VITALS: PULSE 71; RESP 20
[2024-11-19] MEDS: SODIUM CHLORIDE 0.9% 1000ML 1,000 ML IV SCH (23:49)
[2024-11-19] MEDS: ASPIRIN 81 MG CHEW TAB PO ONE (23:49)
[2024-11-19 23:58] VITALS: BP 134/85; PULSE 81; RESP 20; TEMP 98; O2SAT 100
[2024-11-20] VITALS (7 sets, daily range): BP systolic 110–134; BP diastolic 61–85; PULSE 75–102; RESP 17–20; TEMP 97.6–98.7; O2SAT 98–100
[2024-11-20] MEDS ORDERED: TASIMELTEON 20 MG PO (04:09)
[2024-11-20] MEDS ORDERED: HYDROCHLOROTHIA25 MG PO (04:23)
[2024-11-20] MEDS ORDERED: LEVOCETIRIZINE D5 MG (04:23)
[2024-11-20] MEDS ORDERED: FLONASE ALLERG9.9 ML INH (04:23)
[2024-11-20] MEDS ORDERED: MOUNJARO7.5 MG/0.5 (04:23)
[2024-11-20] MEDS ORDERED: HYDROXYZINE HCL10 MG PO (04:23)
[2024-11-20] MEDS ORDERED: REMERON30 MG PO (04:23)
[2024-11-20] MEDS ORDERED: OMEPRAZOLE20 M2 (04:23)
[2024-11-20] MEDS ORDERED: CAPLYTA42 MG PO (04:23)
[2024-11-20] MEDS ORDERED: FAMOTIDINE20 MG PO (04:23)
[2024-11-20] MEDS ORDERED: DICLOFENAC35 MG PO (04:23)
[2024-11-20 05:22] LABS: BASOPHILS % 0.3 % (0.0-1.0); EOSINOPHILS # (AUTO) 0.1 (0.0-0.4); EOSINOPHILS % 0.7 % (0.0-6.0); HEMATOCRIT 30.7 % (34.2-44.1); HEMOGLOBIN 10.7 g/dL (12.0-16.0); LYMPHOCYTES # (AUTO) 2.9 (1.0-3.2); LYMPHOCYTES % 41.8 % (18.0-39.1); MEAN CORPUSCULAR HEMOGLOBIN 32.3 pg (28-32); MEAN CORPUSCULAR HGB CONC 34.9 g/dL (31-35); MEAN CORPUSCULAR VOLUME 92.7 fL (81-99); MONOCYTES # (AUTO) 0.4 (0.2-0.8); MONOCYTES % 6.1 % (4.4-11.3); NEUTROPHILS # (AUTO) 3.6 (2.1-6.9); NEUTROPHILS % 50.8 % (38.7-80.0); PLATELET COUNT 195 x10e3/uL (140-360); RED BLOOD COUNT 3.31 x10e6/uL (3.6-5.1); RED CELL DISTRIBUTION WIDTH 14.7 % (11.7-14.4); WHITE BLOOD COUNT 7.04 x10e3/uL (4.8-10.8)
[2024-11-20 05:53] LABS: ALBUMIN 3.6 g/dL (3.5-5.0); ALBUMIN/GLOBULIN RATIO 1.4 (0.8-2.0); BILIRUBIN,TOTAL 0.5 mg/dL (0.2-1.2); CALCIUM 9.2 mg/dL (8.4-10.2); CREATININE, SERUM 0.72 mg/dL (0.57-1.11); TOTAL PROTEIN 6.2 g/dL (6.5-8.1)
[2024-11-20 06:14] LABS: TROPONIN I 0.002 ng/mL (0-0.300)
[2024-11-20] MEDS: POTASSIUM CHLORIDE 20 MEQ TAB CR PO STA (16:39)
[2024-11-21] VITALS (8 sets, daily range): BP systolic 116–157; BP diastolic 64–95; PULSE 63–104; RESP 18–20; TEMP 97.2–98.7; O2SAT 98–100
[2024-11-21] MEDS: LEVOTHYROXINE SODIUM 50 MCG TAB PO SCH (08:08)
[2024-11-21] MEDS: PANTOPRAZOLE SOD 40 MG TABEC PO SCH (08:08)
[2024-11-21] MEDS: METFORMIN HCL 500 MG TAB PO SCH (08:08)
[2024-11-21] MEDS: HYDROXYCHLOROQUINE SULFATE 200 MG TAB PO SCH (08:09)
[2024-11-21] MEDS ORDERED: HYDROCHLOROTHIAZIDE 25 MG TAB PO SCH (09:00)
[2024-11-21] MEDS ORDERED: NON-FORMULARY MEDICATION (Omeprazole 40 MG) SCH (09:00)
[2024-11-21] MEDS ORDERED: ONDANSETRON HCL 4 MG ORAL DISINTEGRATING TAB PO PRN (11:15)
[2024-11-21 16:08] LABS: MAGNESIUM 1.8 MG/DL (1.3-2.1); PHOSPHORUS 3.2 MG/DL (2.3-4.7)
[2024-11-21] MEDS: POTASSIUM CHLORIDE 10MEQ EA PO ONE (18:06)
[2024-11-21] MEDS ORDERED: CAPLYTA42 MG (18:17)
[2024-11-21] MEDS ORDERED: PRAZOSIN HCL2 MG (18:17)
[2024-11-21] MEDS ORDERED: HETLIOZ20 MG (18:17)
[2024-11-21] MEDS ORDERED: SIMVASTATIN 40 MG TAB PO SCH (21:00)
[2024-11-21] MEDS ORDERED: PRAZOSIN HCL 1 MG CAP PO SCH (21:00)
[2024-11-21] MEDS: CRESTOR 10MG PO SCH (21:39)
[2024-11-21] MEDS: GABAPENTIN 300 MG CAP PO SCH (21:40)
[2024-11-21] MEDS: FAMOTIDINE 20 MG TAB PO SCH (21:40)
[2024-11-22 04:00] VITALS: BP 121/50; PULSE 84; RESP 17; TEMP 97.6; O2SAT 98
[2024-11-22 06:02] LABS: CALCIUM 9.3 mg/dL (8.4-10.2); CREATININE, SERUM 0.72 mg/dL (0.57-1.11)
[2024-11-22 07:41] VITALS: BP 128/81; PULSE 89; RESP 18; TEMP 97.9; O2SAT 100
[2024-11-22 08:05] VITALS: BP 128/81; PULSE 89; RESP 18; TEMP 97.9; O2SAT 100
== END 2024-11-22 11:29 | disposition left against medical advice (07) | DRG 312 ==
LOC: ER 17:37 → ERHOLD 22:30 → MED/SURG2 11-20 00:06 → OBSVTOIN 11-22 09:14
PROVIDERS: ADMIT Internal Medicine; ATTEND Internal Medicine
DX: R55 Syncope and collapse (principal); I95.9 Hypotension, unspecified; R29.6 Repeated falls; S00.83XA Contusion of other part of head, initial encounter; S50.02XA Contusion of left elbow, initial encounter; W18.30XA Fall on same level, unspecified, initial encounter; Y92.009 Unspecified place in unspecified non-institutional (private) residence as the place of occurrence of the external cause; Z53.29 Procedure and treatment not carried out because of patient's decision for other reasons; E87.6 Hypokalemia; M54.9 Dorsalgia, unspecified; M25.521 Pain in right elbow; M54.2 Cervicalgia; R51.9 Headache, unspecified; I10 Essential (primary) hypertension; K21.9 Gastro-esophageal reflux disease without esophagitis; E11.9 Type 2 diabetes mellitus without complications; Z79.84 Long term (current) use of oral hypoglycemic drugs; F51.9 Sleep disorder not due to a substance or known physiological condition, unspecified; F41.8 Other specified anxiety disorders; M79.7 Fibromyalgia; E78.5 Hyperlipidemia, unspecified; E03.9 Hypothyroidism, unspecified; S92.902D Unspecified fracture of left foot, subsequent encounter for fracture with routine healing; W19.XXXD Unspecified fall, subsequent encounter; Z71.81 Spiritual or religious counseling; Z90.5 Acquired absence of kidney; Z87.440 Personal history of urinary (tract) infections; Z79.899 Other long term (current) drug therapy; Z79.82 Long term (current) use of aspirin
CPT/HCPCS: 36415; 70450; 70486; 72125; 72128; 72131; 80048; 80053; 81001; 82550; 83735; 84100; 84484; 85025; 93005; 93306; 93880; 94799; 95819; 99284; G0378; J2470; J7030